=== PATIENT | female | born 1975 | race Hispanic/Latino ===

== ENCOUNTER 2018-04-04 21:40 | Emergency (ER) | payer OTHER, SELFPAY ==
[2018-04-04] MEDS ORDERED: Sodium Chloride 0.9% 1,000 ML ONE (21:56)
[2018-04-04] MEDS ORDERED: Ondansetron HCl/PF 4 MG/2 ML Vial ONE (21:56)
[2018-04-04 22:01] LABS: Bilirubin Negative (Negative); Blood, Urine Moderate (Negative); Clarity Clear (Clear); Glucose, Urine (Dipstick) Negative (Negative); Leukocyte Negative (Negative); Nitrite Negative (Negative); Protein, Urine (Dipstick) Negative (Neg-Trace); Specific Gravity, Urine 1.025 (1.005-1.030); Urobilinogen 0.2 mg/dL (0.2-1.0)
[2018-04-04 22:03] LABS: Pregnancy Test - Urine (BHCG) Negative (Negative); Pregu Control Background? CLEAR/WHITE (CLR/WHITE); Pregu Control Bar Appear? YES (CONTROL BAR); Specific Gravity 1.025 (1.002-1.036)
[2018-04-04 22:09] LABS: Bacteria/HPF Rare-Few HPF (None Seen); Squamous Epithelial 0-3 HPF (0-3); WBC/HPF 0-3 HPF (0-3)
[2018-04-04 22:10] LABS: #Basophils 0.1 thou/uL (0.0-0.2); #Eosinphils 0.1 thou/uL (0.0-0.7); #Lymphocytes 2.8 thou/uL (1.20-3.40); #Monocytes 0.5 thou/uL (0.11-0.59); #Neutrophils 5.8 thou/uL (1.40-6.50); %Basophils 0.7 % (0.0-1.0); %Eosinophils 1.4 % (0.0-10.0); %Lymphocytes 30.4 % (21.0-51.0); %Monocytes 4.8 % (0.0-10.0); %Neutrophils 62.7 % (42.0-75.0); Hemoglobin 12.2 g/dL (12.0-16.0); Mean Corpuscular HGB CONC 32.2 g/dL (32.0-36.0); Mean Corpuscular Volume 83.9 fl (81.0-99.0); Platelet Count 307 thou/uL (130-400); RBC Distribution Width 11.3 % (11.5-14.5); Red Blood Cell (RBC) Count 4.51 mill/uL (4.20-5.40); White Blood Cell (WBC) Count 9.3 thou/uL (4.8-10.8)
[2018-04-04 22:33] LABS: ALT (SGPT) 15 U/L (8-55); AST (SGOT) 16 U/L (5-34); Albumin 4.4 g/dL (3.5-5.0); Alkaline Phosphatase 74 U/L (40-150); Anion Gap 15 mmol/L (10-20); BUN (Urea Nitrogen) 12 mg/dL (7.0-18.7); Bilirubin, Total 0.4 mg/dL (0.2-1.2); Calc. Creatinine Clearance 0 mL/min (70-130); Calcium 9.4 mg/dL (7.8-10.44); Carbon Dioxide 22 mmol/L (22-29); Chloride 103 mmol/L (98-107); Estimated GFR-MDRD 86; Globulin 3.6 g/dL (2.4-3.5); Glucose 108 mg/dL (70-105); Lipase 29 U/L (8-78); Potassium 3.4 mmol/L (3.5-5.1); Sodium 137 mmol/L (136-145)
[2018-04-04] MEDS ORDERED: Acetaminophen 500 MG TAB ONE ×2 (22:43→22:45)
[2018-04-04] MEDS ORDERED: Morphine 4 MG/ML Carpuject ONE (22:49)
== END 2018-04-04 23:33 | disposition home or self-care (01) ==
LOC: NAV ERS 21:40
DX: K29.60 Other gastritis without bleeding (principal); G43.909 Migraine, unspecified, not intractable, without status migrainosus
CPT/HCPCS: 36415; 80053; 81003; 81015; 81025; 83690; 85025; 96361; 96374; 96375; J2270; J2405; J7050

== ENCOUNTER 2018-10-09 18:51 | Emergency (ER) | payer SELFPAY ==
[2018-10-09] MEDS ORDERED: diphenhydrAMINE 50 MG/ML VIAL ONE (19:31)
[2018-10-09] MEDS ORDERED: Metoclopramide HCl 10 MG TAB ONE (19:31)
[2018-10-09] MEDS ORDERED: methylPREDNISolone Sod Succ/PF 125 MG/2 ML VIAL ONE (19:31)
[2018-10-09 19:42] LABS: #Basophils 0.1 thou/uL (0.0-0.2); #Eosinphils 0.2 thou/uL (0.0-0.7); #Lymphocytes 2.9 thou/uL (1.20-3.40); #Monocytes 0.5 thou/uL (0.11-0.59); #Neutrophils 3.7 thou/uL (1.40-6.50); %Basophils 0.8 % (0.0-1.0); %Eosinophils 3.3 % (0.0-10.0); %Lymphocytes 39.2 % (21.0-51.0); %Monocytes 6.3 % (0.0-10.0); %Neutrophils 50.4 % (42.0-75.0); Mean Corpuscular HGB CONC 32.6 g/dL (32.0-36.0); Mean Corpuscular Hemoglobin 27.9 pg (27.0-31.0); Mean Corpuscular Volume 85.7 fL (78.0-98.0); Mean Platelet Volume 5.8 fL (7.4-10.4); Platelet Count 293 thou/uL (130-400); RBC Distribution Width 12.3 % (11.5-14.5); Red Blood Cell (RBC) Count 4.29 mill/uL (4.20-5.40); White Blood Cell (WBC) Count 7.4 thou/uL (4.8-10.8)
[2018-10-09 19:58] LABS: BHCG - Serum Negative (NEGATIVE); Pregs Control Bar Appear? YES (CONTROL BAR)
[2018-10-09] MEDS ORDERED: Ketorolac Tromethamine 30 MG/ML VIAL ONE (20:02)
[2018-10-09 20:06] LABS: ALT (SGPT) 13 U/L (8-55); AST (SGOT) 15 U/L (5-34); Albumin 4.4 g/dL (3.5-5.0); Alkaline Phosphatase 62 U/L (40-150); Anion Gap 14 mmol/L (10-20); BUN (Urea Nitrogen) 14 mg/dL (7.0-18.7); Bilirubin, Total 0.1 mg/dL (0.2-1.2); Calc. Creatinine Clearance 0 mL/min (70-130); Calcium 9.2 mg/dL (7.8-10.44); Carbon Dioxide 23 mmol/L (22-29); Chloride 106 mmol/L (98-107); Estimated GFR-MDRD 86; Globulin 3.6 g/dL (2.4-3.5); Glucose 95 mg/dL (70-105); Potassium 3.5 mmol/L (3.5-5.1); Sodium 139 mmol/L (136-145)
--- NOTE | 2018-10-09 20:34 | RAD ---
PORTABLE CHEST: 10/09/18 HISTORY: Chest palpitations. Heart size and mediastinum are within normal limits considering portable technique. Lungs are clear o f infiltrates. No signs of failure. No bony findings. IMPRESSION: No active intrathoracic disease. Heart size appears borderline but this is felt to be related to the apical lordotic technique. POS: [facility]
== END 2018-10-09 20:42 | disposition home or self-care (01) ==
LOC: NAV ERS 18:51
DX: G43.909 Migraine, unspecified, not intractable, without status migrainosus (principal); R94.31 Abnormal electrocardiogram [ECG] [EKG]; R00.2 Palpitations; Z79.899 Other long term (current) drug therapy
CPT/HCPCS: 71045; 80053; 84484; 84703; 85025; 96374; 96375; J1200; J1885; J2930

== ENCOUNTER 2019-04-02 06:38 | Emergency (ER) | payer BC, SELFPAY ==
[2019-04-02] MEDS ORDERED: predniSONE 20 MG TAB ONE (07:19)
[2019-04-02] MEDS ORDERED: Famotidine 20 MG TAB ONE (07:19)
[2019-04-02] MEDS ORDERED: diphenhydrAMINE 25 MG CAP ONE (07:19)
== END 2019-04-02 07:35 | disposition home or self-care (01) ==
LOC: NAV ERS 06:38
DX: T78.3XXA Angioneurotic edema, initial encounter (principal); I10 Essential (primary) hypertension; G43.909 Migraine, unspecified, not intractable, without status migrainosus; F32.9 Major depressive disorder, single episode, unspecified
CPT/HCPCS: 99282; J7512; Q0163

== ENCOUNTER 2020-08-13 03:05 | Emergency (ER) | payer BC, OTHER ==
[2020-08-13] MEDS ORDERED: Metoclopramide HCl 10 MG/2 ML VIAL ONE (04:19)
[2020-08-13] MEDS ORDERED: Ketorolac Tromethamine 30 MG/ML VIAL ONE (04:19)
[2020-08-13] MEDS ORDERED: diphenhydrAMINE 50 MG/ML VIAL ONE (04:19)
[2020-08-13] MEDS ORDERED: Sodium Chloride 0.9% 1,000 ML ONE (04:19)
[2020-08-13] MEDS ORDERED: Prochlorperazine 10 MG/2 ML VIAL ONE (04:20)
== END 2020-08-13 06:24 | disposition home or self-care (01) ==
LOC: NAV ERS 03:05
DX: G43.909 Migraine, unspecified, not intractable, without status migrainosus (principal); R94.31 Abnormal electrocardiogram [ECG] [EKG]
CPT/HCPCS: 96374; J0780; J1200; J1885; J2765; J7050

== ENCOUNTER 2020-10-08 21:06 | Emergency (ER) | payer BC ==
[~2020-10-08 21:06] MED LIST: Iopamidol 370 76% 100 ML VIAL ONE
[2020-10-08] MEDS ORDERED: Ketorolac Tromethamine 30 MG/ML VIAL ONE (21:43)
[2020-10-08 21:46] LABS: #Eosinphils 0.2 thou/uL (0.0-0.7); #Lymphocytes 1.6 thou/uL (1.20-3.40); #Monocytes 0.9 thou/uL (0.11-0.59); #Neutrophils 6.5 thou/uL (1.40-6.50); %Basophils 0.5 % (0.0-1.0); %Eosinophils 2.3 % (0.0-10.0); %Lymphocytes 17.6 % (21.0-51.0); %Monocytes 9.6 % (0.0-10.0); Hemoglobin 11.8 g/dL (12.0-16.0); Mean Corpuscular HGB CONC 32.8 g/dL (32.0-36.0); Mean Corpuscular Hemoglobin 28.8 pg (27.0-31.0); Mean Corpuscular Volume 87.8 fL (78.0-98.0); Platelet Count 211 thou/uL (130-400); RBC Distribution Width 11.2 % (11.5-14.5); Red Blood Cell (RBC) Count 4.09 mill/uL (4.20-5.40); White Blood Cell (WBC) Count 9.3 thou/uL (4.8-10.8)
[2020-10-08 21:58] LABS: Anion Gap 14 mmol/L (10-20); BUN (Urea Nitrogen) 15 mg/dL (7.0-18.7); Calc. Creatinine Clearance 0 mL/min (70-130); Calcium 8.4 mg/dL (7.8-10.44); Carbon Dioxide 22 mmol/L (22-29); Chloride 104 mmol/L (98-107); Glucose 118 mg/dL (70-105); Potassium 3.9 mmol/L (3.5-5.1); Sodium 136 mmol/L (136-145)
--- NOTE | 2020-10-09 06:52 | CT ---
CTA CHEST WITH CONTRAST: Date: 10/08/2020 COMPARISON: 03/06/2012. HISTORY: Left-sided chest pain with breathing. TECHNIQUE: Multiple contiguous axial images were obtained in a CTA of the chest with contrast per pulmonary embo lism protocol. 3D oblique MIP reformats and direct coronal reformats were performed. FINDINGS: The pulmonary arteries are well opacified without filling defects to suggest pulmonary emboli. The he art is normal in size without focal cardiac abnormality. No hilar or mediastinal lymphadenopathy are seen. No pneumothorax or pleural effusion seen. There is an area of nodularity along the right minor fissur e measuring 4.0 mm in size. This could represent an intrafissural lymph node. No other pulmonary nodu les are seen. No focal infiltrates are present. The visualized subdiaphragmatic structures are unremarkable. The chest wall soft tissues are unremark able. No acute osseous abnormality is seen. IMPRESSION: No evidence of pulmonary thromboembolism. POS: [facility]
== END 2020-10-08 23:37 | disposition home or self-care (01) ==
LOC: NAV ERS 21:06
DX: R07.81 Pleurodynia (principal); I10 Essential (primary) hypertension; G43.909 Migraine, unspecified, not intractable, without status migrainosus; Z79.899 Other long term (current) drug therapy
CPT/HCPCS: 36415; 71275; 80048; 85025; 93005; 96374; J1885; Q9967

== ENCOUNTER 2020-10-25 12:02 | Emergency (ER) | payer BC ==
[2020-10-25 12:45] LABS: #Basophils 0.1 thou/uL (0.0-0.2); #Eosinphils 0.2 thou/uL (0.0-0.7); #Lymphocytes 2.4 thou/uL (1.20-3.40); #Monocytes 0.5 thou/uL (0.11-0.59); #Neutrophils 5.6 thou/uL (1.40-6.50); %Basophils 0.6 % (0.0-1.0); %Eosinophils 2.2 % (0.0-10.0); %Lymphocytes 27.7 % (21.0-51.0); %Monocytes 6.1 % (0.0-10.0); %Neutrophils 63.5 % (42.0-75.0); Hemoglobin 11.9 g/dL (12.0-16.0); Mean Corpuscular HGB CONC 32.2 g/dL (32.0-36.0); Mean Corpuscular Hemoglobin 28.1 pg (27.0-31.0); Mean Corpuscular Volume 87.4 fL (78.0-98.0); Mean Platelet Volume 4.7 fL (7.4-10.4); Platelet Count 561 thou/uL (130-400); RBC Distribution Width 11.1 % (11.5-14.5); Red Blood Cell (RBC) Count 4.24 mill/uL (4.20-5.40); White Blood Cell (WBC) Count 8.7 thou/uL (4.8-10.8)
[2020-10-25] MEDS ORDERED: Sodium Chloride 0.9% 1,000 ML ONE ×4 (12:47→16:48)
[2020-10-25] MEDS ORDERED: Ketorolac Tromethamine 30 MG/ML VIAL ONE (12:47)
[2020-10-25] MEDS ORDERED: Promethazine HCl 25 MG/ML VIAL ONE (12:47)
[2020-10-25 13:05] LABS: ALT (SGPT) 9 U/L (8-55); AST (SGOT) 10 U/L (5-34); Alkaline Phosphatase 88 U/L (40-110); Anion Gap 16 mmol/L (10-20); BUN (Urea Nitrogen) 13 mg/dL (7.0-18.7); Bilirubin, Total 0.3 mg/dL (0.2-1.2); CK (CPK) 33 U/L (29-168); Calc. Creatinine Clearance 0 mL/min (70-130); Calcium 9.1 mg/dL (7.8-10.44); Carbon Dioxide 26 mmol/L (22-29); Chloride 103 mmol/L (98-107); Globulin 3.9 g/dL (2.4-3.5); Glucose 100 mg/dL (70-105); Potassium 3.9 mmol/L (3.5-5.1); Protein, Total 7.9 g/dL (6.0-8.3); Sodium 141 mmol/L (136-145)
--- NOTE | 2020-10-25 13:28 | CT ---
CTA Angio Chest W WO Con History: Chest pain Comparison: CT angiogram of the chest October 08, 2020 Findings: CT angiogram chest performed after the intravenous administration of contrast. 3-D renderin g provided. No proximal segmental pulmonary arterial filling defect. No pericardial effusion. New large left layering pleural effusion. Compressive atelectasis within the left lower lobe. No evid ence for pneumonia. No acute displaced rib fracture. Impression: 1. No pulmonary embolism. 2. New large left layering pleural effusion with mild compressive atelectasis left lung base.
[2020-10-25] MEDS ORDERED: Clindamycin/D5W 600 mg/50 ml Premix Bag ONE (15:41)
== END 2020-10-25 17:05 | disposition short-term general hospital (02) ==
LOC: NAV ERS 12:02
DX: J90 Pleural effusion, not elsewhere classified (principal); I10 Essential (primary) hypertension; G43.909 Migraine, unspecified, not intractable, without status migrainosus; Z79.899 Other long term (current) drug therapy; Z87.19 Personal history of other diseases of the digestive system
CPT/HCPCS: 71275; 80053; 82550; 83605; 83880; 84484; 85025; 87040; 93005; 94760; 96365; 96367; 96375; J1885; J2550; J3490; J7050; Q9967

== ENCOUNTER 2024-05-16 17:32 | Emergency (ER) | payer SELFPAY ==
[2024-05-17 23:07] LABS: Chlamydia by PCR, Vaginal Swab *Indeterminate (NotDetected); GC by PCR, Vaginal Swab *Indeterminate (NotDetected)
== END 2024-05-16 19:00 | disposition home or self-care (01) ==
LOC: NAV ERS 17:32
DX: R10.2 Pelvic and perineal pain (principal); I10 Essential (primary) hypertension
CPT/HCPCS: 87480; 87491; 87510; 87591; 87660; 99284

== ENCOUNTER 2024-05-19 14:04 | Emergency (ER) | payer SELFPAY ==
[2024-05-20 14:59] LABS: Chlam.trachomatis by PCR,Urine Not Detected (NotDetected); GC N.gonorrhoeae PCR,UrineVOID Not Detected (NotDetected)
== END 2024-05-19 14:55 | disposition home or self-care (01) ==
LOC: NAV ERS 14:04
DX: N76.0 Acute vaginitis (principal); B96.89 Other specified bacterial agents as the cause of diseases classified elsewhere; Z11.3 Encounter for screening for infections with a predominantly sexual mode of transmission; I10 Essential (primary) hypertension
CPT/HCPCS: 87491; 87591; 99283

== ENCOUNTER 2024-06-29 10:06 | Emergency (ER) | payer OTHER | END 2024-06-29 11:04 | disposition home or self-care (01) | LOC: NAV ERS 10:06 | DX: M54.41 Lumbago with sciatica, right side (principal); I10 Essential (primary) hypertension | CPT/HCPCS: 99283 ==